=== PATIENT | male | born 1960 | race African-American/Black ===

== ENCOUNTER 2020-11-17 17:14 | Inpatient (IN) | payer OTHER ==
[2020-11-17] MEDS ORDERED: ACETAMINOPHEN 325 MG TABLET (FP) PO ONE (18:26)
[2020-11-17] MEDS ORDERED: DEXAMETHASONE 4 MG TABLET (FP) PO ONE (18:26)
[2020-11-17 19:07] LABS: BASO % 0.4 % (0-2.0); HEMATOCRIT 42.4 % (35.4-49); HEMOGLOBIN 14.4 GM/dL (11.7-16.9); LYMPH % 13.7 % (8-40); MCH 29.5 pg (25.7-33.7); MCHC 33.9 g/dl (32.0-35.9); MONO % 9.6 % (3.8-10.2); NEUT % 76.3 % (42.8-82.8); PLATELET COUNT 130 K/MM3 (134-434); RBC 4.87 M/mm3 (4.00-5.60); WHITE BLOOD COUNT 3.9 K/mm3 (4.0-10.0)
[2020-11-17] MEDS ORDERED: LACTATED RINGERS SOLUTION 1000 ML INFUS.BAG IV ONE (19:12)
[2020-11-17] MEDS ORDERED: ACETAMINOPHEN 1000 MG/100 ML VIAL (NON FORMULARY) IVPB ONE (19:12)
[2020-11-17] MEDS ORDERED: DEXAMETHASONE SOD PHOSPHATE 4 MG/1 ML VIAL IVPUSH ONE (19:13)
[2020-11-17] MEDS ORDERED: DEXAMETHASONE SOD PHOSPHATE 10 MG/1 ML VIAL ONE (19:17)
[2020-11-17] MEDS ORDERED: ACETAMINOPHEN INJECTION 100 ML IVPB ONE (19:18)
[2020-11-17 19:29] LABS: CHLORIDE 99 mmol/L (98-107); POTASSIUM 4.3 mmol/L (3.5-5.1); SODIUM 132 mmol/L (136-145)
[2020-11-17 19:31] LABS: ANION GAP 7 MMOL/L (8-16); BLOOD UREA NITROGEN 13.5 mg/dL (7-18); CO2 26 mmol/L (21-32); GLUCOSE,RANDOM 103 mg/dL (74-106)
[2020-11-17 19:34] LABS: CREATININE 1.3 mg/dL (0.55-1.3)
[2020-11-17 20:01] LABS: LDH 574 U/L (87-246)
[2020-11-17] MEDS ORDERED: ALBUTEROL SO4 HFA INHALER IH PRN (21:18)
[2020-11-17] MEDS ORDERED: CHOLECALCIFEROL (VIT D3) 1,000 UNIT (25 MCG) TABLET ONE (21:55)
[2020-11-17] MEDS ORDERED: ZINC SULFATE 220 MG CAPSULE (FP) ONE (21:55)
[2020-11-17] MEDS ORDERED: FAMOTIDINE 20 MG TABLET ONE (21:55)
[2020-11-17] MEDS ORDERED: ASCORBIC ACID 500 MG TABLET (FP) ONE (21:55)
[2020-11-17] MEDS ORDERED: ENOXAPARIN NA (PORCINE) 40 MG/0.4 ML DISP.SYRIN SQ ONE (21:56)
[2020-11-17] MEDS ORDERED: FAMOTIDINE 20 MG/50 ML IVPB 20 MG/50 ML MG IVPB SCH (22:00)
[2020-11-17] MEDS: FAMOTIDINE 20 MG TABLET PO SCH (22:14)
[2020-11-17] MEDS: ENOXAPARIN NA (PORCINE) 40 MG/0.4 ML DISP.SYRIN SQ SCH (22:14)
[2020-11-17] MEDS: CHOLECALCIFEROL (VIT D3) 1,000 UNIT (25 MCG) TABLET PO SCH (22:14)
[2020-11-17] MEDS: ZINC SULFATE 220 MG CAPSULE (FP) PO SCH (22:14)
[2020-11-17] MEDS: ASCORBIC ACID 500 MG TABLET (FP) PO SCH (22:14)
[2020-11-18] MEDS ORDERED: PNEUMOC 13-VAL CONJ-DIP CRM/PF 0.5 ML DISP.SYRIN IM ONE (03:27)
[2020-11-18 08:39] LABS: POTASSIUM 4.4 mmol/L (3.5-5.1)
[2020-11-18 08:41] LABS: ALBUMIN 3.2 g/dl (3.4-5.0); MAGNESIUM 2.3 mg/dL (1.8-2.4)
[2020-11-18 08:42] LABS: BASO % 0.1 % (0-2.0); HEMATOCRIT 38.1 % (35.4-49); HEMOGLOBIN 13.1 GM/dL (11.7-16.9); MCH 29.3 pg (25.7-33.7); MCHC 34.3 g/dl (32.0-35.9); MEAN CELL VOLUME 85.4 fl (80-96); MEAN PLT VOLUME 8.7 fl (7.5-11.1); MONO % 8.4 % (3.8-10.2); NEUT % 77.5 % (42.8-82.8); PLATELET COUNT 167 K/MM3 (134-434); RBC 4.46 M/mm3 (4.00-5.60); WHITE BLOOD COUNT 3.1 K/mm3 (4.0-10.0)
[2020-11-18 08:44] LABS: CREATININE 1.2 mg/dL (0.55-1.3)
[2020-11-18 08:45] LABS: PHOSPHOROUS 3.9 mg/dL (2.5-4.9)
[2020-11-18 08:46] LABS: BILIRUBIN,TOTAL 0.4 mg/dL (0.2-1); TOT PROT 6.5 g/dl (6.4-8.2)
[2020-11-18 08:59] LABS: INR 1.08 (0.83-1.09); PROTHROMBIN TIME (PATIENT) 13.3 SEC (9.7-13.0)
[2020-11-18 09:01] LABS: ACTIVATED PTT 31.6 SECONDS (25.2-36.5)
[2020-11-18] MEDS ORDERED: PT OWN MED DRAWER 7, Y5N ONE (09:35)
[2020-11-18] MEDS: ASCORBIC ACID 500 MG TABLET (FP) PO SCH ×2 (09:36→22:28)
[2020-11-18] MEDS: ENOXAPARIN NA (PORCINE) 40 MG/0.4 ML DISP.SYRIN SQ SCH (09:36)
[2020-11-18] MEDS: DEXAMETHASONE SOD PHOSPHATE 4 MG/1 ML VIAL IVPUSH SCH (09:37)
[2020-11-18] MEDS: NIFEdipine E.R 60 MG TABLET PO SCH (09:37)
[2020-11-18] MEDS: CHOLECALCIFEROL (VIT D3) 1,000 UNIT (25 MCG) TABLET PO SCH (09:37)
[2020-11-18] MEDS: ZINC SULFATE 220 MG CAPSULE (FP) PO SCH ×2 (09:37→22:28)
[2020-11-18] MEDS: FAMOTIDINE 20 MG TABLET PO SCH ×2 (09:37→22:29)
[2020-11-18] MEDS ORDERED: PNEUMOCOCCAL 23 VACCINE 0.5 ML VIAL IM ONE (10:00)
[2020-11-18] MEDS: MOMETASONE FUROATE 220 MCG/IH INHALER IH SCH (11:21)
[2020-11-18] MEDS ORDERED: SODIUM CHLORIDE 500 ML IV STA (14:27)
[2020-11-18] MEDS ORDERED: REMDESIVIR 200 MG in SODIUM CHLORIDE 210 ML IVPB ONE (15:00)
[2020-11-19 08:08] LABS: BASO % 0.3 % (0-2.0); EOS % 0.2 % (0-4.5); HEMATOCRIT 41.7 % (35.4-49); HEMOGLOBIN 13.8 GM/dL (11.7-16.9); LYMPH % 7.8 % (8-40); MCH 28.9 pg (25.7-33.7); MCHC 33.2 g/dl (32.0-35.9); MEAN CELL VOLUME 87.1 fl (80-96); MEAN PLT VOLUME 9.4 fl (7.5-11.1); MONO % 4.6 % (3.8-10.2); NEUT % 87.1 % (42.8-82.8); PLATELET COUNT 199 K/MM3 (134-434); RBC 4.79 M/mm3 (4.00-5.60); RDW 13.8 % (11.9-15.9); WHITE BLOOD COUNT 10.3 K/mm3 (4.0-10.0)
[2020-11-19 08:42] LABS: POTASSIUM 4.2 mmol/L (3.5-5.1)
[2020-11-19 08:55] LABS: CALCIUM 8.5 mg/dL (8.5-10.1)
[2020-11-19 08:56] LABS: ALBUMIN 3.5 g/dl (3.4-5.0); BLOOD UREA NITROGEN 19.6 mg/dL (7-18); MAGNESIUM 2.4 mg/dL (1.8-2.4)
[2020-11-19 08:59] LABS: CREATININE 1.2 mg/dL (0.55-1.3)
[2020-11-19 09:00] LABS: BILIRUBIN,TOTAL 0.4 mg/dL (0.2-1)
[2020-11-19] MEDS ORDERED: PT OWN MED DRAWER 7, Y5N ONE (09:03)
[2020-11-19] MEDS: ZINC SULFATE 220 MG CAPSULE (FP) PO SCH ×2 (09:53→22:05)
[2020-11-19] MEDS: NIFEdipine E.R 60 MG TABLET PO SCH (09:53)
[2020-11-19] MEDS: ASCORBIC ACID 500 MG TABLET (FP) PO SCH ×2 (09:54→22:05)
[2020-11-19] MEDS: ENOXAPARIN NA (PORCINE) 40 MG/0.4 ML DISP.SYRIN SQ SCH (09:54)
[2020-11-19] MEDS: CHOLECALCIFEROL (VIT D3) 1,000 UNIT (25 MCG) TABLET PO SCH (09:54)
[2020-11-19] MEDS: FAMOTIDINE 20 MG TABLET PO SCH ×2 (09:55→22:05)
[2020-11-19] MEDS ORDERED: ACETAMINOPHEN 325 MG TABLET (FP) PO ONE (10:18)
[2020-11-19] MEDS: MOMETASONE FUROATE 220 MCG/IH INHALER IH SCH (11:20)
[2020-11-19] MEDS: DEXAMETHASONE SOD PHOSPHATE 4 MG/1 ML VIAL IVPUSH SCH (13:19)
[2020-11-19] MEDS: BUDESONIDE/FORMETEROL FUMARATE 160/4.5 mcg INHALER IH SCH ×2 (13:19→22:07)
[2020-11-19] MEDS: ALBUTEROL SO4 HFA INHALER IH SCH ×3 (13:23→22:08)
[2020-11-19] MEDS: REMDESIVIR 100 MG in SODIUM CHLORIDE 230 ML IVPB SCH (14:35)
[2020-11-20 08:37] LABS: HEMATOCRIT 40.6 % (35.4-49); HEMOGLOBIN 13.8 GM/dL (11.7-16.9); MCH 29.6 pg (25.7-33.7); MCHC 34.1 g/dl (32.0-35.9); MEAN PLT VOLUME 8.9 fl (7.5-11.1); PLATELET COUNT 222 K/MM3 (134-434); RBC 4.66 M/mm3 (4.00-5.60); RDW 14.2 % (11.9-15.9); WHITE BLOOD COUNT 8.2 K/mm3 (4.0-10.0)
[2020-11-20 08:52] LABS: POTASSIUM 4.3 mmol/L (3.5-5.1)
[2020-11-20 08:54] LABS: CALCIUM 8.5 mg/dL (8.5-10.1)
[2020-11-20 08:57] LABS: ALBUMIN 3.3 g/dl (3.4-5.0); CREATININE 1.1 mg/dL (0.55-1.3)
[2020-11-20 08:59] LABS: BILIRUBIN,TOTAL 0.4 mg/dL (0.2-1); TOT PROT 7.1 g/dl (6.4-8.2)
[2020-11-20 09:01] LABS: MAGNESIUM 2.6 mg/dL (1.8-2.4)
[2020-11-20 10:31] LABS: ERYTHROCYTE SEDIMENTATION RATE 42 mm/hr (0-20)
[2020-11-20] MEDS: ENOXAPARIN NA (PORCINE) 40 MG/0.4 ML DISP.SYRIN SQ SCH (11:16)
[2020-11-20] MEDS: FAMOTIDINE 20 MG TABLET PO SCH ×2 (11:16→21:46)
[2020-11-20] MEDS: CHOLECALCIFEROL (VIT D3) 1,000 UNIT (25 MCG) TABLET PO SCH (11:16)
[2020-11-20] MEDS: NIFEdipine E.R 60 MG TABLET PO SCH (11:16)
[2020-11-20] MEDS: ZINC SULFATE 220 MG CAPSULE (FP) PO SCH ×2 (11:16→21:45)
[2020-11-20] MEDS: ASCORBIC ACID 500 MG TABLET (FP) PO SCH ×2 (11:16→21:45)
[2020-11-20] MEDS: MOMETASONE FUROATE 220 MCG/IH INHALER IH SCH (11:17)
[2020-11-20] MEDS: ALBUTEROL SO4 HFA INHALER IH SCH ×4 (11:17→21:45)
[2020-11-20] MEDS: DEXAMETHASONE SOD PHOSPHATE 4 MG/1 ML VIAL IVPUSH SCH (11:17)
[2020-11-20] MEDS: BUDESONIDE/FORMETEROL FUMARATE 160/4.5 mcg INHALER IH SCH ×2 (11:17→21:47)
[2020-11-20] MEDS: REMDESIVIR 100 MG in SODIUM CHLORIDE 230 ML IVPB SCH (14:54)
[2020-11-21 08:20] LABS: HEMATOCRIT 41.4 % (35.4-49); HEMOGLOBIN 14.1 GM/dL (11.7-16.9); MCH 29.6 pg (25.7-33.7); MCHC 34.1 g/dl (32.0-35.9); MEAN CELL VOLUME 86.9 fl (80-96); MEAN PLT VOLUME 8.6 fl (7.5-11.1); PLATELET COUNT 259 K/MM3 (134-434); RBC 4.77 M/mm3 (4.00-5.60); WHITE BLOOD COUNT 7.3 K/mm3 (4.0-10.0)
[2020-11-21 08:36] LABS: POTASSIUM 4.5 mmol/L (3.5-5.1)
[2020-11-21 08:38] LABS: ALBUMIN 3.3 g/dl (3.4-5.0); BLOOD UREA NITROGEN 20.4 mg/dL (7-18); CALCIUM 8.3 mg/dL (8.5-10.1); MAGNESIUM 2.5 mg/dL (1.8-2.4)
[2020-11-21 08:41] LABS: CREATININE 1.2 mg/dL (0.55-1.3)
[2020-11-21 08:42] LABS: PHOSPHOROUS 4.1 mg/dL (2.5-4.9)
[2020-11-21 08:43] LABS: BILIRUBIN,TOTAL 0.5 mg/dL (0.2-1); TOT PROT 6.9 g/dl (6.4-8.2)
[2020-11-21 09:16] LABS: ERYTHROCYTE SEDIMENTATION RATE 40 mm/hr (0-20)
[2020-11-21] MEDS: ASCORBIC ACID 500 MG TABLET (FP) PO SCH ×2 (10:44→21:48)
[2020-11-21] MEDS: ZINC SULFATE 220 MG CAPSULE (FP) PO SCH ×2 (10:44→21:48)
[2020-11-21] MEDS: CHOLECALCIFEROL (VIT D3) 1,000 UNIT (25 MCG) TABLET PO SCH (10:44)
[2020-11-21] MEDS: NIFEdipine E.R 60 MG TABLET PO SCH (10:44)
[2020-11-21] MEDS: ENOXAPARIN NA (PORCINE) 40 MG/0.4 ML DISP.SYRIN SQ SCH (10:45)
[2020-11-21] MEDS: DEXAMETHASONE SOD PHOSPHATE 4 MG/1 ML VIAL IVPUSH SCH (10:45)
[2020-11-21] MEDS: BUDESONIDE/FORMETEROL FUMARATE 160/4.5 mcg INHALER IH SCH ×2 (10:45→21:54)
[2020-11-21] MEDS: FAMOTIDINE 20 MG TABLET PO SCH ×2 (10:45→21:49)
[2020-11-21] MEDS: ALBUTEROL SO4 HFA INHALER IH SCH ×4 (10:45→21:54)
[2020-11-21] MEDS: MOMETASONE FUROATE 220 MCG/IH INHALER IH SCH (10:45)
[2020-11-21] MEDS: REMDESIVIR 100 MG in SODIUM CHLORIDE 230 ML IVPB SCH (14:41)
[2020-11-22] MEDS: ALBUTEROL SO4 HFA INHALER IH SCH ×4 (08:00→22:22)
[2020-11-22 09:11] LABS: HEMATOCRIT 40.9 % (35.4-49); MCH 29.8 pg (25.7-33.7); MCHC 34.2 g/dl (32.0-35.9); MEAN CELL VOLUME 87.3 fl (80-96); MEAN PLT VOLUME 8.4 fl (7.5-11.1); PLATELET COUNT 296 K/MM3 (134-434); RBC 4.68 M/mm3 (4.00-5.60); WHITE BLOOD COUNT 9.2 K/mm3 (4.0-10.0)
[2020-11-22 09:33] LABS: POTASSIUM 4.4 mmol/L (3.5-5.1)
[2020-11-22 09:36] LABS: CALCIUM 8.6 mg/dL (8.5-10.1)
[2020-11-22 09:37] LABS: ALBUMIN 3.2 g/dl (3.4-5.0); BLOOD UREA NITROGEN 22.5 mg/dL (7-18); MAGNESIUM 2.3 mg/dL (1.8-2.4)
[2020-11-22 09:40] LABS: CREATININE 1.1 mg/dL (0.55-1.3)
[2020-11-22 09:42] LABS: BILIRUBIN,TOTAL 0.7 mg/dL (0.2-1); TOT PROT 6.8 g/dl (6.4-8.2)
[2020-11-22] MEDS ORDERED: PT OWN MED DRAWER 7, Y5N ONE (10:31)
[2020-11-22] MEDS: ASCORBIC ACID 500 MG TABLET (FP) PO SCH ×2 (11:20→22:21)
[2020-11-22] MEDS: CHOLECALCIFEROL (VIT D3) 1,000 UNIT (25 MCG) TABLET PO SCH (11:21)
[2020-11-22] MEDS: ZINC SULFATE 220 MG CAPSULE (FP) PO SCH ×2 (11:21→22:21)
[2020-11-22] MEDS: NIFEdipine E.R 60 MG TABLET PO SCH (11:21)
[2020-11-22] MEDS: ENOXAPARIN NA (PORCINE) 40 MG/0.4 ML DISP.SYRIN SQ SCH ×2 (11:21→22:22)
[2020-11-22] MEDS: FAMOTIDINE 20 MG TABLET PO SCH ×2 (11:21→22:21)
[2020-11-22] MEDS: DEXAMETHASONE SOD PHOSPHATE 4 MG/1 ML VIAL IVPUSH SCH (11:22)
[2020-11-22] MEDS: MOMETASONE FUROATE 220 MCG/IH INHALER IH SCH (11:22)
[2020-11-22] MEDS: BUDESONIDE/FORMETEROL FUMARATE 160/4.5 mcg INHALER IH SCH ×2 (11:22→22:31)
[2020-11-22] MEDS: REMDESIVIR 100 MG in SODIUM CHLORIDE 230 ML IVPB SCH (14:41)
[2020-11-22] MEDS: BENZOCAINE/MENTH/CETYLPYRD CL 1 EACH LOZENGE MM PRN (22:59)
[2020-11-23] MEDS: ALBUTEROL SO4 HFA INHALER IH SCH ×5 (02:27→21:57)
[2020-11-23 08:55] LABS: BASO % 0.2 % (0-2.0); EOS % 0.1 % (0-4.5); HEMATOCRIT 42.6 % (35.4-49); HEMOGLOBIN 14.6 GM/dL (11.7-16.9); LYMPH % 10.2 % (8-40); MCH 29.6 pg (25.7-33.7); MCHC 34.2 g/dl (32.0-35.9); MEAN CELL VOLUME 86.7 fl (80-96); MEAN PLT VOLUME 8.2 fl (7.5-11.1); NEUT % 77.5 % (42.8-82.8); PLATELET COUNT 316 K/MM3 (134-434); RBC 4.91 M/mm3 (4.00-5.60); RDW 13.8 % (11.9-15.9); WHITE BLOOD COUNT 10.6 K/mm3 (4.0-10.0)
[2020-11-23 09:15] LABS: POTASSIUM 4.6 mmol/L (3.5-5.1)
[2020-11-23 09:17] LABS: MAGNESIUM 2.1 mg/dL (1.8-2.4)
[2020-11-23 09:18] LABS: ALBUMIN 3.2 g/dl (3.4-5.0); BLOOD UREA NITROGEN 21.6 mg/dL (7-18); CALCIUM 8.7 mg/dL (8.5-10.1)
[2020-11-23 09:21] LABS: CREATININE 1.1 mg/dL (0.55-1.3)
[2020-11-23 09:22] LABS: PHOSPHOROUS 3.6 mg/dL (2.5-4.9); TOT PROT 6.6 g/dl (6.4-8.2)
[2020-11-23 09:23] LABS: BILIRUBIN,TOTAL 0.6 mg/dL (0.2-1)
[2020-11-23] MEDS ORDERED: PT OWN MED DRAWER 7, Y5N ONE ×2 (10:26→21:57)
[2020-11-23] MEDS: CHOLECALCIFEROL (VIT D3) 1,000 UNIT (25 MCG) TABLET PO SCH (10:38)
[2020-11-23] MEDS: ZINC SULFATE 220 MG CAPSULE (FP) PO SCH ×2 (10:39→21:58)
[2020-11-23] MEDS: DEXAMETHASONE SOD PHOSPHATE 4 MG/1 ML VIAL IVPUSH SCH (10:39)
[2020-11-23] MEDS: FAMOTIDINE 20 MG TABLET PO SCH ×2 (10:39→21:58)
[2020-11-23] MEDS: NIFEdipine E.R 60 MG TABLET PO SCH (10:39)
[2020-11-23] MEDS: ASCORBIC ACID 500 MG TABLET (FP) PO SCH ×2 (10:39→21:58)
[2020-11-23] MEDS: ENOXAPARIN NA (PORCINE) 40 MG/0.4 ML DISP.SYRIN SQ SCH ×2 (10:40→21:58)
[2020-11-23] MEDS: MOMETASONE FUROATE 220 MCG/IH INHALER IH SCH (10:40)
[2020-11-23] MEDS: BUDESONIDE/FORMETEROL FUMARATE 160/4.5 mcg INHALER IH SCH ×2 (10:40→21:58)
[2020-11-23 11:31] LABS: ANISOCYTOSIS 0; MACROCYTOSIS 0; PLATELET ESTIMATE NORMAL
[2020-11-23] MEDS: BENZOCAINE/MENTH/CETYLPYRD CL 1 EACH LOZENGE MM PRN (21:58)
[2020-11-24 08:22] LABS: BASO % 0.2 % (0-2.0); EOS % 0.3 % (0-4.5); HEMATOCRIT 40.6 % (35.4-49); HEMOGLOBIN 13.9 GM/dL (11.7-16.9); LYMPH % 9.4 % (8-40); MCH 29.6 pg (25.7-33.7); MCHC 34.2 g/dl (32.0-35.9); MEAN CELL VOLUME 86.3 fl (80-96); MEAN PLT VOLUME 8.1 fl (7.5-11.1); NEUT % 78.1 % (42.8-82.8); PLATELET COUNT 333 K/MM3 (134-434); RBC 4.71 M/mm3 (4.00-5.60); RDW 13.7 % (11.9-15.9); WHITE BLOOD COUNT 8.8 K/mm3 (4.0-10.0)
[2020-11-24 08:50] LABS: POTASSIUM 4.6 mmol/L (3.5-5.1)
[2020-11-24 08:52] LABS: CALCIUM 8.6 mg/dL (8.5-10.1)
[2020-11-24 08:53] LABS: ALBUMIN 3.1 g/dl (3.4-5.0); BLOOD UREA NITROGEN 20.1 mg/dL (7-18); MAGNESIUM 2.3 mg/dL (1.8-2.4)
[2020-11-24 08:56] LABS: PHOSPHOROUS 3.7 mg/dL (2.5-4.9)
[2020-11-24 08:57] LABS: TOT PROT 6.7 g/dl (6.4-8.2)
[2020-11-24 09:01] LABS: BILIRUBIN,TOTAL 1.2 mg/dL (0.2-1)
[2020-11-24] MEDS: MOMETASONE FUROATE 220 MCG/IH INHALER IH SCH (11:05)
[2020-11-24] MEDS: ALBUTEROL SO4 HFA INHALER IH SCH ×4 (11:05→21:18)
[2020-11-24] MEDS: NIFEdipine E.R 60 MG TABLET PO SCH (11:06)
[2020-11-24] MEDS: ASCORBIC ACID 500 MG TABLET (FP) PO SCH ×2 (11:06→21:19)
[2020-11-24] MEDS: BUDESONIDE/FORMETEROL FUMARATE 160/4.5 mcg INHALER IH SCH ×2 (11:06→21:19)
[2020-11-24] MEDS: CHOLECALCIFEROL (VIT D3) 1,000 UNIT (25 MCG) TABLET PO SCH (11:06)
[2020-11-24] MEDS: DEXAMETHASONE SOD PHOSPHATE 4 MG/1 ML VIAL IVPUSH SCH (11:06)
[2020-11-24] MEDS: FAMOTIDINE 20 MG TABLET PO SCH ×2 (11:06→21:19)
[2020-11-24] MEDS: ENOXAPARIN NA (PORCINE) 40 MG/0.4 ML DISP.SYRIN SQ SCH ×2 (11:06→21:19)
[2020-11-24] MEDS: ZINC SULFATE 220 MG CAPSULE (FP) PO SCH ×2 (11:06→21:19)
[2020-11-25] MEDS: ALBUTEROL SO4 HFA INHALER IH SCH ×4 (08:00→21:06)
[2020-11-25 08:24] LABS: HEMATOCRIT 40.8 % (35.4-49); MCH 29.5 pg (25.7-33.7); MCHC 34.4 g/dl (32.0-35.9); MEAN CELL VOLUME 85.8 fl (80-96); MEAN PLT VOLUME 7.9 fl (7.5-11.1); PLATELET COUNT 386 K/MM3 (134-434); RBC 4.75 M/mm3 (4.00-5.60); RDW 13.6 % (11.9-15.9); WHITE BLOOD COUNT 8.6 K/mm3 (4.0-10.0)
[2020-11-25 08:35] LABS: POTASSIUM 4.8 mmol/L (3.5-5.1)
[2020-11-25 08:38] LABS: ALBUMIN 3.1 g/dl (3.4-5.0); BLOOD UREA NITROGEN 17.4 mg/dL (7-18); CALCIUM 8.8 mg/dL (8.5-10.1); MAGNESIUM 2.3 mg/dL (1.8-2.4)
[2020-11-25 08:42] LABS: CREATININE 1.1 mg/dL (0.55-1.3); PHOSPHOROUS 3.5 mg/dL (2.5-4.9)
[2020-11-25 08:43] LABS: BILIRUBIN,TOTAL 1.1 mg/dL (0.2-1); TOT PROT 6.5 g/dl (6.4-8.2)
[2020-11-25 09:33] LABS: ERYTHROCYTE SEDIMENTATION RATE 50 mm/hr (0-20)
[2020-11-25] MEDS: CHOLECALCIFEROL (VIT D3) 1,000 UNIT (25 MCG) TABLET PO SCH (10:34)
[2020-11-25] MEDS: NIFEdipine E.R 60 MG TABLET PO SCH (10:34)
[2020-11-25] MEDS: ZINC SULFATE 220 MG CAPSULE (FP) PO SCH ×2 (10:34→21:06)
[2020-11-25] MEDS: ASCORBIC ACID 500 MG TABLET (FP) PO SCH ×2 (10:34→21:06)
[2020-11-25] MEDS: ENOXAPARIN NA (PORCINE) 40 MG/0.4 ML DISP.SYRIN SQ SCH ×2 (10:35→21:06)
[2020-11-25] MEDS: FAMOTIDINE 20 MG TABLET PO SCH ×2 (10:35→21:06)
[2020-11-25] MEDS: DEXAMETHASONE SOD PHOSPHATE 4 MG/1 ML VIAL IVPUSH SCH (10:39)
[2020-11-25] MEDS: BUDESONIDE/FORMETEROL FUMARATE 160/4.5 mcg INHALER IH SCH ×2 (10:53→21:06)
[2020-11-25] MEDS: MOMETASONE FUROATE 220 MCG/IH INHALER IH SCH (10:53)
[2020-11-25] MEDS ORDERED: SENNOSIDES 8.6MG TABLET (FP) PO PRN (12:15)
[2020-11-25] MEDS: DOCUSATE SODIUM 100 MG CAPSULE (FP) PO SCH ×2 (12:48→21:06)
[2020-11-26] MEDS ORDERED: SODIUM CHLORIDE NASAL SPRAY 44 ML BOTTLE NS ONE (01:07)
[2020-11-26] MEDS: DOCUSATE SODIUM 100 MG CAPSULE (FP) PO SCH ×3 (04:32→20:08)
[2020-11-26 08:00] LABS: HEMATOCRIT 37.7 % (35.4-49); HEMOGLOBIN 13.1 GM/dL (11.7-16.9); MCH 29.7 pg (25.7-33.7); MCHC 34.8 g/dl (32.0-35.9); MEAN CELL VOLUME 85.4 fl (80-96); MEAN PLT VOLUME 7.6 fl (7.5-11.1); PLATELET COUNT 381 K/MM3 (134-434); RBC 4.42 M/mm3 (4.00-5.60); RDW 13.7 % (11.9-15.9); WHITE BLOOD COUNT 6.9 K/mm3 (4.0-10.0)
[2020-11-26 08:09] LABS: POTASSIUM 4.6 mmol/L (3.5-5.1)
[2020-11-26 08:11] LABS: CALCIUM 8.2 mg/dL (8.5-10.1)
[2020-11-26 08:12] LABS: ALBUMIN 2.9 g/dl (3.4-5.0); BLOOD UREA NITROGEN 18.6 mg/dL (7-18); MAGNESIUM 2.2 mg/dL (1.8-2.4)
[2020-11-26 08:15] LABS: CREATININE 1.1 mg/dL (0.55-1.3); PHOSPHOROUS 3.6 mg/dL (2.5-4.9)
[2020-11-26 08:16] LABS: BILIRUBIN,TOTAL 0.4 mg/dL (0.2-1)
[2020-11-26 08:17] LABS: TOT PROT 6.2 g/dl (6.4-8.2)
[2020-11-26] MEDS ORDERED: PT OWN MED DRAWER 7, Y5N ONE ×2 (10:29→23:06)
[2020-11-26] MEDS: ZINC SULFATE 220 MG CAPSULE (FP) PO SCH ×2 (10:34→22:32)
[2020-11-26] MEDS: FAMOTIDINE 20 MG TABLET PO SCH ×2 (10:35→22:32)
[2020-11-26] MEDS: NIFEdipine E.R 60 MG TABLET PO SCH (10:35)
[2020-11-26] MEDS: MOMETASONE FUROATE 220 MCG/IH INHALER IH SCH (10:35)
[2020-11-26] MEDS: CHOLECALCIFEROL (VIT D3) 1,000 UNIT (25 MCG) TABLET PO SCH (10:35)
[2020-11-26] MEDS: ASCORBIC ACID 500 MG TABLET (FP) PO SCH ×2 (10:35→22:32)
[2020-11-26] MEDS: ALBUTEROL SO4 HFA INHALER IH SCH ×4 (10:36→20:08)
[2020-11-26] MEDS: BUDESONIDE/FORMETEROL FUMARATE 160/4.5 mcg INHALER IH SCH ×2 (10:36→22:32)
[2020-11-26] MEDS: DEXAMETHASONE SOD PHOSPHATE 4 MG/1 ML VIAL IVPUSH SCH (10:36)
[2020-11-26] MEDS: ENOXAPARIN NA (PORCINE) 40 MG/0.4 ML DISP.SYRIN SQ SCH ×2 (10:38→22:33)
[2020-11-26 18:03] VITALS: BMI 31.2
[2020-11-26] MEDS: BENZOCAINE/MENTH/CETYLPYRD CL 1 EACH LOZENGE MM PRN (22:35)
[2020-11-27] MEDS: DOCUSATE SODIUM 100 MG CAPSULE (FP) PO SCH ×3 (05:20→21:37)
[2020-11-27 09:20] LABS: HEMATOCRIT 40.4 % (35.4-49); HEMOGLOBIN 13.5 GM/dL (11.7-16.9); MCH 29.1 pg (25.7-33.7); MCHC 33.5 g/dl (32.0-35.9); MEAN CELL VOLUME 86.9 fl (80-96); MEAN PLT VOLUME 7.3 fl (7.5-11.1); PLATELET COUNT 374 K/MM3 (134-434); RBC 4.64 M/mm3 (4.00-5.60); RDW 13.9 % (11.9-15.9)
[2020-11-27 09:58] LABS: POTASSIUM 4.4 mmol/L (3.5-5.1)
[2020-11-27] MEDS: ASCORBIC ACID 500 MG TABLET (FP) PO SCH ×2 (09:58→21:36)
[2020-11-27] MEDS: ZINC SULFATE 220 MG CAPSULE (FP) PO SCH ×2 (09:58→21:37)
[2020-11-27] MEDS: CHOLECALCIFEROL (VIT D3) 1,000 UNIT (25 MCG) TABLET PO SCH (09:58)
[2020-11-27] MEDS: NIFEdipine E.R 60 MG TABLET PO SCH (09:58)
[2020-11-27] MEDS: FAMOTIDINE 20 MG TABLET PO SCH ×2 (09:59→21:37)
[2020-11-27] MEDS: ENOXAPARIN NA (PORCINE) 40 MG/0.4 ML DISP.SYRIN SQ SCH ×2 (09:59→21:38)
[2020-11-27] MEDS: ALBUTEROL SO4 HFA INHALER IH SCH ×4 (09:59→21:37)
[2020-11-27] MEDS: MOMETASONE FUROATE 220 MCG/IH INHALER IH SCH (10:06)
[2020-11-27] MEDS: BUDESONIDE/FORMETEROL FUMARATE 160/4.5 mcg INHALER IH SCH ×2 (10:06→21:38)
[2020-11-27 10:08] LABS: BILIRUBIN,TOTAL 0.5 mg/dL (0.2-1); TOT PROT 6.3 g/dl (6.4-8.2)
[2020-11-27 10:10] LABS: BLOOD UREA NITROGEN 15.9 mg/dL (7-18); CALCIUM 8.7 mg/dL (8.5-10.1); CREATININE 1.1 mg/dL (0.55-1.3)
[2020-11-27 10:11] LABS: MAGNESIUM 2.3 mg/dL (1.8-2.4); PHOSPHOROUS 3.8 mg/dL (2.5-4.9)
[2020-11-27 10:44] LABS: ERYTHROCYTE SEDIMENTATION RATE 53 mm/hr (0-20)
[2020-11-27] MEDS: DEXAMETHASONE 4 MG TABLET (FP) PO SCH (11:54)
[2020-11-27] MEDS: BENZOCAINE/MENTH/CETYLPYRD CL 1 EACH LOZENGE MM PRN (21:38)
[2020-11-28] MEDS: DOCUSATE SODIUM 100 MG CAPSULE (FP) PO SCH ×2 (05:13→12:48)
[2020-11-28 08:22] LABS: HEMATOCRIT 39.4 % (35.4-49); HEMOGLOBIN 13.3 GM/dL (11.7-16.9); MCH 29.5 pg (25.7-33.7); MCHC 33.9 g/dl (32.0-35.9); MEAN CELL VOLUME 87.1 fl (80-96); MEAN PLT VOLUME 7.7 fl (7.5-11.1); PLATELET COUNT 352 K/MM3 (134-434); RBC 4.52 M/mm3 (4.00-5.60); RDW 13.7 % (11.9-15.9); WHITE BLOOD COUNT 6.5 K/mm3 (4.0-10.0)
[2020-11-28] MEDS: ALBUTEROL SO4 HFA INHALER IH SCH ×3 (08:31→15:09)
[2020-11-28 08:43] LABS: POTASSIUM 4.4 mmol/L (3.5-5.1)
[2020-11-28 08:49] LABS: CALCIUM 8.6 mg/dL (8.5-10.1)
[2020-11-28 08:50] LABS: BLOOD UREA NITROGEN 14.9 mg/dL (7-18); MAGNESIUM 2.3 mg/dL (1.8-2.4)
[2020-11-28 08:53] LABS: PHOSPHOROUS 4.5 mg/dL (2.5-4.9)
[2020-11-28 08:54] LABS: BILIRUBIN,TOTAL 0.4 mg/dL (0.2-1); TOT PROT 6.4 g/dl (6.4-8.2)
[2020-11-28] MEDS ORDERED: PT OWN MED DRAWER 7, Y5N ONE (09:28)
[2020-11-28] MEDS: ASCORBIC ACID 500 MG TABLET (FP) PO SCH (09:50)
[2020-11-28] MEDS: ZINC SULFATE 220 MG CAPSULE (FP) PO SCH (09:50)
[2020-11-28] MEDS: NIFEdipine E.R 60 MG TABLET PO SCH (09:50)
[2020-11-28] MEDS: CHOLECALCIFEROL (VIT D3) 1,000 UNIT (25 MCG) TABLET PO SCH (09:50)
[2020-11-28] MEDS: ENOXAPARIN NA (PORCINE) 40 MG/0.4 ML DISP.SYRIN SQ SCH (09:51)
[2020-11-28] MEDS: FAMOTIDINE 20 MG TABLET PO SCH (09:51)
[2020-11-28] MEDS: BUDESONIDE/FORMETEROL FUMARATE 160/4.5 mcg INHALER IH SCH (09:51)
[2020-11-28] MEDS: MOMETASONE FUROATE 220 MCG/IH INHALER IH SCH (09:51)
[2020-11-28] MEDS: DEXAMETHASONE 4 MG TABLET (FP) PO SCH (09:51)
[2020-11-28 11:11] LABS: ERYTHROCYTE SEDIMENTATION RATE 44 mm/hr (0-20)
[2020-11-28 15:03] VITALS: BP 145/80; PULSE 90; TEMP 98.8
== END 2020-11-28 18:41 | disposition home or self-care (01) | DRG 177 ==
LOC: JER 17:14 → JERBED 20:15 → J8W 11-18 02:38
PROVIDERS: ADMIT Hospitalist; ATTEND Internal Medicine
PROC: XW13325 Transfusion of Convalescent Plasma (Nonautologous) into Peripheral Vein, Percutaneous Approach, New Technology Group 5 (ICD-10-PCS; principal; 2020-11-18)
PROC: XW033E5 Introduction of Remdesivir Anti-infective into Peripheral Vein, Percutaneous Approach, New Technology Group 5 (ICD-10-PCS; 2020-11-18)
DX: U07.1 COVID-19 (principal); J12.82 Pneumonia due to coronavirus disease 2019; J96.01 Acute respiratory failure with hypoxia; M62.82 Rhabdomyolysis; J45.909 Unspecified asthma, uncomplicated; R94.31 Abnormal electrocardiogram [ECG] [EKG]; K44.9 Diaphragmatic hernia without obstruction or gangrene; N28.1 Cyst of kidney, acquired; R50.9 Fever, unspecified
CPT/HCPCS: 36415; 36430; 71045-TC-FY; 71250-TC; 80048; 80053; 82550; 82553; 82728; 82962; 83605; 83615; 83735; 84100; 84484; 85025; 85027; 85379; 85610; 85651; 85730; 86140; 86850; 86900; 86901; 87040; 87070; 87205; 87804; 87899; 93005; 93010; 94761; 97116-GP; 97161-GP; 99285-25; C9399; C9803; J0131; P9017; U0003